=== PATIENT | female | born 1945 | race Caucasian/White ===

== ENCOUNTER 2017-01-29 11:36 | Observation (INO) | payer MEDICARE, MEDICAID ==
[~2017-01-29] VITALS: Ht 149.9 cm; Wt 102.4 kg
--- NOTE | ~2017-01-29 | FD ---
ADMIT: 01/29/2017 RM/LOC: [address] [facility] MR#: [id number] [address] [address] TAYLOR CASTREJON [address] [place] [id number] Final Diagnosis SEX: F AGE: 71 : 1945 ADMISSION DATE: 01/29/2017 DISCHARGE DATE: 01/31/2017 FINAL DIAGNOSES: 1. Left rotator cuff tear. 2. Chronic subacromial impingement left shoulder. 3. 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 Anum Carlos MD/ felipe JOB #: [id number] CC: Anum Carlos MD, Attending Physician Gunner Rausch MD, Family Physician
--- NOTE | 2017-01-29 13:44 | HP ---
ADMIT: 01/29/2017 RM/LOC: [facility] MR#: [id number] [facility] [address] TAYLOR CASTREJON [facility] [place], [place] [id number] Pre-OP History and Physical SEX: F AGE: 71 : 1945 DATE OF SERVICE: CHIEF COMPLAINT: Left shoulder pain. HISTORY OF PRESENT ILLNESS: This patient is a 71-year-old, presenting today for left shoulder arthroscopy and rotator cuff repair. She has had a long history of shoulder pain treated conservatively. Most recently, she had increase in her shoulder pain, and injection and physical therapy really did nothing for her pain. MRI scan showed qhqw-uh-jshdfqzu glenohumeral chondromalacia and a tear of the rotator cuff with minimal retraction. No evidence of any atrophy within the supraspinatus or infraspinatus tendons, and no evidence for any fatty infiltration. Based on this information and looking at her plain films, she presents for shoulder arthroscopy and rotator cuff repair. PAST MEDICAL HISTORY: MEDICATIONS: Include; 1. Xarelto. 2. Prilosec. 3. Morphine ER. 4. Lyrica. 5. Prednisone. ALLERGIES: NO ALLERGIES TO MEDICINES. FAMILY HISTORY: Noncontributory. SOCIAL HISTORY: The patient lives in [place]. Her family doctor is Dr. Gunner Rausch. She sees Dr. Almodovar for rheumatologic problems. REVIEW OF SYSTEMS: Negative. PHYSICAL EXAMINATION: This patient has weakness in both abduction, external rotation. She has full passive range of motion of the shoulder but with ADMIT: 01/29/2017 RM/LOC: [facility] MR#: [id number] [address] [address] TAYLOR CASTREJON [address] [place] [address] Pre-OP History and Physical SEX: F AGE: 71 : 1945 marked tenderness on attempts of range of motion. RADIOGRAPHS: Her radiographs show mild narrowing of the glenohumeral joint, but fairly symmetric. She has a type 2 acromion with evidence for moderate AC joint arthritis. IMPRESSION: 1. Left rotator cuff tear. 2. Mild glenohumeral chondromalacia. RECOMMENDATIONS: Left shoulder arthroscopy with rotator cuff repair. Risks, benefits, alternatives, as well as potential complications were discussed. Anum Carlos MD/ felipe JOB #: [id number] CC: Anum Carlos, Attending Physician Gunner Rausch, Family Physician
--- NOTE | 2017-01-30 07:44 | OR ---
ADMIT: 01/29/2017 RM/LOC: [address] [facility] MR#: [id number] [facility]#: [id number] [address] [facility] [address] [place] [id number] TAYLOR CASTREJON [address] [place] [address] Operative/Delivery Room Report SEX: F AGE: 71 : 1945 SURGERY DATE: 01/29/2017 SURGEON: Anum Carlos MD PREOPERATIVE DIAGNOSES: 1. Left rotator cuff tear. 2. Iuue-iy-frmqaqay glenohumeral chondromalacia. POSTOPERATIVE DIAGNOSES: 1. Left rotator cuff tear. 2. Qnnm-ie-vuvzwdqu glenohumeral chondromalacia. 3. Attritional biceps tendinitis and multiple loose bodies, left shoulder. PROCEDURE: 1. Left shoulder arthroscopy with biceps tenotomy. 2. Extensive intra-articular and bursal debridement, left shoulder. 3. Mini open rotator cuff repair. ASSISTED BY: BEBE Covington and BEBE Wolf DESCRIPTION OF PROCEDURE: This patient was brought to the operating room. After satisfactory local anesthesia was achieved, she was placed on the table in a modified owens chair position. All bony prominences well padded. Her head was supported in a cushion head with the cervical spine in neutral position. Left shoulder was then circumferentially prepped and draped in the usual sterile fashion. A posterior portal was established in the glenohumeral joint. The scope introduced. There were multiple small cartilage loose bodies in the shoulder and there was an area of grade 3-4 chondromalacia on the anterior aspect of the glenoid with grade 2 chondromalacia on the posterior half and then on the humeral head, the anterior portion of the humeral head looked normal. The posterior portion demonstrated some areas of grade 2 and 4 chondromalacia. There was a large tear of the rotator cuff without significant retraction. There was also an attritional biceps tendinitis and degenerative SLAP tear. Through an anterior portal, I first did a biceps tenotomy. I irrigated the small cartilage loose bodies from the shoulder, areas of fragmented articular cartilage were stabilized with the shaver. In the subacromial bursa, I first resected a very thickened bursa and this then enabled me to expose the rotator cuff tear. There was a tear of the supraspinatus tendon that extended into the infraspinatus tendon in a large V- shaped fashion. I did not perform a resection of the distal clavicle or subacromial decompression because her potential for a total shoulder arthroplasty in the future and this would only destabilize her anteriorly. Therefore, a short lateral portal extension incision was performed, the deltoid was split in line with biportal from the edge of the acromion about 4 ADMIT: 01/29/2017 RM/LOC: [address] [facility] MR#: [id number] [address] [address] TAYLOR CASTREJON [address] [place] [address] Operative/Delivery Room Report SEX: F AGE: 71 : 1945 cm. I first identified the rotator cuff. I lightly decorticated the greater tuberosity with a ayana and then I did a margin convergence of the rotator cuff medially and brought this out laterally where using modified Mg-Yash type stitch on this tendon laterally, I brought these through bone tunnels to secure the rotator cuff repair. This gave me a good tendon to tendon and tendon to bone fixation without any tension on the repair. The wound was thoroughly irrigated. The deltoid fascia was closed [id number] with #1 Vicryl, the subcutaneous tissue with 2-0 Vicryl, and the skin with diana. The shoulder was injected with 30 mL of 0.5% Marcaine with epinephrine. A sterile dressing was applied to the shoulder, the patient was placed in a shoulder immobilizer and transferred from the operative suite in stable condition. Anum Carlos MD/ felipe JOB #: [id number] CC: Anum Carlos, Attending Physician Gunner Rausch, Family Physician
[2017-02-21] MEDS ORDERED: CLARITIN DPS10 MG PO (13:48)
[2017-02-21] MEDS ORDERED: CARAFATE DPS1 GM PO (13:48)
[2017-02-21] MEDS ORDERED: CYMBALTA30 MG PO (13:49)
[2017-02-21] MEDS ORDERED: ELAVIL-DPS25 MG PO (13:49)
[2017-02-21] MEDS ORDERED: DELTASONE DPS10 MG PO (13:49)
[2017-02-21] MEDS ORDERED: PROTONIX40 MG PO (13:49)
[2017-02-21] MEDS ORDERED: LYRICA50 MG PO (13:49)
[2017-02-21] MEDS ORDERED: MS CONTIN DPS15 MG PO (13:49)
[2017-02-21] MEDS ORDERED: TOPAMAX DPS25 MG PO (13:50)
[2017-02-21] MEDS ORDERED: XARELTO20 MG PO (13:50)
[2017-02-21] MEDS ORDERED: DUONEB DPS3 ML IH ×2 (13:50→13:56)
[2017-02-21] MEDS ORDERED: ZADITOR5 ML OU (13:51)
[2017-02-21] MEDS ORDERED: ATIVAN-DPS0.5 MG PO (13:52)
[2017-02-21] MEDS ORDERED: COLACE-DPS100 MG PO (13:53)
[2017-02-21] MEDS ORDERED: PERCOCET 10 DPS1 TAB PO (13:53)
[2017-02-21] MEDS ORDERED: TYLENOL DPS325 MG PO (13:53)
[2017-02-21] MEDS ORDERED: MAALOX DPS30 ML PO (13:53)
[2017-02-21] MEDS ORDERED: BENADRYL-DPS25 MG PO (13:53)
[2017-02-21] MEDS ORDERED: DULERA 200/58.8 GM IH (13:54)
[2017-02-21] MEDS ORDERED: DILACOR PO (13:56)
[2017-02-21] MEDS ORDERED: OYSTER SHELL C500 MG PO (13:56)
[2017-02-21] MEDS ORDERED: NASONEX NASAL S17 GM NS (13:57)
[2017-02-21] MEDS ORDERED: ZOFRAN4 MG PO (13:57)
[2017-02-21] MEDS ORDERED: LASIX DPS40 MG PO (13:57)
[2017-02-21] MEDS ORDERED: SENOKOT DPS8.6 MG PO (13:57)
[2017-02-21] MEDS ORDERED: KLOR-CON M2020 ME1 PO (13:59)
[2017-02-21] MEDS ORDERED: KEFLEX-DPS500 MG PO (14:00)
== END 2017-01-31 14:00 ==
LOC: SSS 11:36 → 5MS 15:00 → SSS 17:41 → 5MS 18:45 → SSS 18:45 → 5MS 01-31 14:00
PROVIDERS: ADMIT Orthopaedic Surgery
PROC: 0LQ20ZZ Repair Left Shoulder Tendon, Open Approach (ICD-10-PCS; principal; 2017-01-29)
PROC: 0RBK4ZZ Excision of Left Shoulder Joint, Percutaneous Endoscopic Approach (ICD-10-PCS; principal; 2017-01-29)
DX: M75.102 Unspecified rotator cuff tear or rupture of left shoulder, not specified as traumatic (principal); M94.212 Chondromalacia, left shoulder; M75.22 Bicipital tendinitis, left shoulder; M24.012 Loose body in left shoulder; J44.9 Chronic obstructive pulmonary disease, unspecified; I10 Essential (primary) hypertension; M75.42 Impingement syndrome of left shoulder; J45.20 Mild intermittent asthma, uncomplicated; I11.0 Hypertensive heart disease with heart failure; I50.32 Chronic diastolic (congestive) heart failure; E66.01 Morbid (severe) obesity due to excess calories; M19.90 Unspecified osteoarthritis, unspecified site; Z79.899 Other long term (current) drug therapy; Z79.891 Long term (current) use of opiate analgesic; Z96.653 Presence of artificial knee joint, bilateral; Z86.711 Personal history of pulmonary embolism; Z79.01 Long term (current) use of anticoagulants